=== PATIENT | female | born 1940 | race Caucasian/White ===

== ENCOUNTER 2017-06-15 06:56 | Emergency (ER) | payer MEDICARE, BC ==
[~2017-06-15] VITALS: Ht 170.2 cm; Wt 56.0 kg
[~2017-06-15 06:56] MED LIST: METH4TAB81 PO
[2017-06-15] MEDS ORDERED: normal saline 1000ML IV soln IV ONE (07:10)
[2017-06-15] MEDS ORDERED: ondansetron/PF 4mg/2ml inj IV ONE (07:20)
[2017-06-15 07:22] LABS: CLARITY,URINE CLOUDY (Clear); COLOR,URINE YELLOW (Yellow); GLUCOSE, URINE NEGATIVE (Neg); KETONES,URINE TRACE mg/dl (Neg); LEUKOCYTE ESTERASE ,URINE NEGATIVE (Neg); NITRITES, URINE NEGATIVE (Neg); OCCULT BLOOD,URINE TRACE-INTACT (Neg); PROTEIN,URINE 30 mg/dl (Neg); UROBILINOGEN,URINE 0.2 E.U/dL (0.2-1.0)
[2017-06-15 07:31] LABS: UA COLLECTION TYPE CLN CATCH MIDSTREAM
[2017-06-15 07:35] LABS: BACTERIA,URINE 1+ /HPF (Neg); MUCUS STRANDS MANY /LPF (Neg); RBC,URINE 0-2 /HPF (0-2); SQUAMOUS EPITHELIAL CELL,UR MANY /LPF (FEW); TRANSITIONAL EPI CELLS,URINE FEW /HPF; WBC,URINE 0-4 /HPF (0-4)
[2017-06-15 07:35] LABS: BASOPHILS % (AUTO) 0.1 % (0-1); EOSINOPHILS % (AUTO) 0 % (0-6); HEMATOCRIT 40.8 % (35.0-45.0); HEMOGLOBIN 14.3 g/dl (12.0-16.0); LYMPHOCYTES # (AUTO) 0.2 X10'3 (1.1-4.8); LYMPHOCYTES % (AUTO) 1.6 % (21-51); MEAN CORPUSCULAR HEMOGLOBIN 33.6 PG (27.0-31.0); MEAN CORPUSCULAR VOLUME 95.8 FL (78-98); MEAN PLATELET VOLUME 9.4 FL (7.4-10.4); MONOCYTES # (AUTO) 0.3 X10'3 (0-0.9); MONOCYTES % (AUTO) 2.4 % (2-12); NEUTROPHILS # (AUTO) 13.4 X10'3 (1.8-7.7); NEUTROPHILS % (AUTO) 95.9 % (42-75); PLATELET COUNT 183 X10'3 (140-440); RED BLOOD COUNT 4.26 X10'6 (4.20-5.60); RED CELL DISTRIBUTION WIDTH 13.7 % (11.5-14.5)
[2017-06-15 07:36] LABS: AMORPHOUS URATES 1+
[2017-06-15 07:45] LABS: PARTIAL THROMBOPLASTIN TIME 23 SECONDS (22-32)
[2017-06-15 08:01] LABS: ALANINE AMINOTRANSFERASE 44 U/L (12-78); ALBUMIN 4.4 G/DL (3.4-5.0); ALBUMIN/GLOBULIN RATIO 1.2 (1.1-1.5); ALKALINE PHOSPHATASE 77 IU/L (46-116); ANION GAP 14 (8-16); ASPARTATE AMINO TRANSFERASE 63 U/L (10-37); BILIRUBIN,TOTAL 0.8 MG/DL (0.1-1.0); BLOOD UREA NITROGEN 20 MG/DL (7-18); BUN/CREATININE RATIO 22.2 (6.6-38.0); CALCIUM 9.6 MG/DL (8.5-10.1); CHLORIDE 105 MMOL/L (99-107); GLUCOSE 169 MG/DL (70-104); SODIUM 140 MMOL/L (135-145); TOTAL CARBON DIOXIDE 20.9 MMOL/L (24-32); TOTAL PROTEIN 8.1 G/DL (6.4-8.2); TROPONIN I < 0.04 NG/ML (0.0-0.05); eGFR 61 ML/MIN
[2017-06-15 09:48] LABS: TOTAL CELLS COUNTED 100
[2017-06-15 09:49] LABS: PLATELET ESTIMATE NORMAL
[2017-06-15] MEDS ORDERED: ONDA8TAB9 PO (09:53)
[2017-06-15 13:01] VITALS: BP 104/54
== END 2017-06-15 13:10 | disposition home or self-care (01) ==
LOC: ER 06:56
DX: K52.9 Noninfective gastroenteritis and colitis, unspecified (principal); D72.829 Elevated white blood cell count, unspecified; M19.90 Unspecified osteoarthritis, unspecified site; Z79.899 Other long term (current) drug therapy
CPT/HCPCS: 36415; 71045; 74176; 80053; 81001; 83605; 83735; 84145; 84484; 85025; 85610; 85730; 87040; 93005; 96361; 96374; 99285; J2405; J7030

== ENCOUNTER 2021-02-15 07:26 | Emergency (ER) | payer BC, MEDICARE ==
[~2021-02-15] VITALS: Ht 167.6 cm; Wt 52.3 kg
[~2021-02-15 07:26] MED LIST changes: -METH4TAB81 PO; +NO HOME MEDS
[2021-02-15 09:09] LABS: BASOPHILS % (AUTO) 0.5 % (0-1); EOSINOPHILS # (AUTO) 0.1 X10'3 (0-0.9); EOSINOPHILS % (AUTO) 1.5 % (0-6); HEMATOCRIT 37.6 % (35.0-45.0); HEMOGLOBIN 12.9 g/dl (12.0-16.0); LYMPHOCYTES # (AUTO) 0.9 X10'3 (1.1-4.8); LYMPHOCYTES % (AUTO) 12.5 % (21-51); MEAN CORPUSCULAR HEMOGLOBIN 33.6 PG (27.0-31.0); MEAN CORPUSCULAR HGB CONC 34.3 g/dL (33.0-36.5); MEAN CORPUSCULAR VOLUME 97.7 FL (78-98); MEAN PLATELET VOLUME 9.6 FL (7.4-10.4); MONOCYTES # (AUTO) 0.4 X10'3 (0-0.9); MONOCYTES % (AUTO) 5.9 % (2-12); NEUTROPHILS # (AUTO) 5.9 X10'3 (1.8-7.7); NEUTROPHILS % (AUTO) 79.6 % (42-75); PLATELET COUNT 178 X10'3 (140-440); RED BLOOD COUNT 3.84 X10'6 (4.20-5.60); RED CELL DISTRIBUTION WIDTH 13.2 % (11.5-14.5); WHITE BLOOD COUNT 7.4 X10'3 (4.5-11.0)
[2021-02-15 09:21] LABS: ALANINE AMINOTRANSFERASE 37 U/L (12-78); ALBUMIN 4.1 G/DL (3.4-5.0); ALKALINE PHOSPHATASE 75 IU/L (46-116); ANION GAP 11 (8-16); ASPARTATE AMINO TRANSFERASE 62 U/L (10-37); BILIRUBIN,TOTAL 0.4 MG/DL (0.1-1.0); BLOOD UREA NITROGEN 16 MG/DL (7-18); BUN/CREATININE RATIO 22.5 (6.6-38.0); CALCIUM 9.5 MG/DL (8.5-10.1); CHLORIDE 105 MMOL/L (99-107); CREATININE 0.71 MG/DL (0.40-0.90); GLUCOSE 100 MG/DL (70-104); POTASSIUM 3.9 MMOL/L (3.5-5.1); SODIUM 141 MMOL/L (135-145); TOTAL CARBON DIOXIDE 25.4 MMOL/L (24-32); TOTAL PROTEIN 8.3 G/DL (6.4-8.2); eGFR 79 ML/MIN
[2021-02-15] MEDS ORDERED: benzonatate 100mg capsule PO ONE (10:05)
[2021-02-15] MEDS ORDERED: ipratropium/albuterol 3ml nebule NEB ONE (10:05)
[2021-02-15] MEDS ORDERED: celeCOXIB 100mg capsule PO ONE (10:05)
[2021-02-15 10:20] LABS: TROPONIN I < 0.04 NG/ML (0.0-0.05)
[2021-02-15] MEDS ORDERED: PROM5SYR2 PO (10:58)
[2021-02-15] MEDS ORDERED: INHA1INH2 INH (10:58)
[2021-02-15] MEDS ORDERED: BENZ-16 PO (10:58)
[2021-02-15] MEDS ORDERED: ALBU18HF2 INH (10:58)
--- NOTE | 2021-02-15 11:20 | NUR ---
Pt and family member given and understands d/c instructions. Ambulatory with a steady gait.
[2021-02-15 11:43] VITALS: BP 110/64
== END 2021-02-15 11:20 | disposition home or self-care (01) ==
LOC: ER 07:27
DX: R05.9 Cough, unspecified (principal); J98.01 Acute bronchospasm; R09.89 Other specified symptoms and signs involving the circulatory and respiratory systems; Z72.89 Other problems related to lifestyle
CPT/HCPCS: 36415; 71046; 80053; 83605; 83880; 84484; 85025; 87040; 93005; 94640; 94760; 99285

== ENCOUNTER 2022-10-11 02:43 | Emergency (ER) | payer BC ==
[~2022-10-11] VITALS: Ht 167.6 cm; Wt 54.5 kg
[~2022-10-11 02:43] MED LIST changes: +ALBU18HF2 INH; +INHA1INH2 INH; +PROM5SYR2 PO
[2022-10-11 03:19] LABS: BASOPHILS # (AUTO) 0.1 X10'3 (0-0.2); BASOPHILS % (AUTO) 0.7 % (0-1); EOSINOPHILS # (AUTO) 0.2 X10'3 (0-0.9); HEMATOCRIT 37.1 % (35.0-45.0); HEMOGLOBIN 12.5 g/dl (12.0-16.0); LYMPHOCYTES # (AUTO) 1.7 X10'3 (1.1-4.8); LYMPHOCYTES % (AUTO) 20.5 % (21-51); MEAN CORPUSCULAR HEMOGLOBIN 33.1 PG (27.0-31.0); MEAN CORPUSCULAR HGB CONC 33.7 g/dL (33.0-36.5); MEAN CORPUSCULAR VOLUME 98.5 FL (78-98); MEAN PLATELET VOLUME 9.4 FL (7.4-10.4); MONOCYTES # (AUTO) 0.7 X10'3 (0-0.9); MONOCYTES % (AUTO) 8.4 % (2-12); NEUTROPHILS # (AUTO) 5.6 X10'3 (1.8-7.7); NEUTROPHILS % (AUTO) 68.4 % (42-75); PLATELET COUNT 187 X10'3 (140-440); RED BLOOD COUNT 3.76 X10'6 (4.20-5.60); WHITE BLOOD COUNT 8.1 X10'3 (4.5-11.0)
[2022-10-11 03:31] LABS: ALANINE AMINOTRANSFERASE 23 U/L (12-78); ALBUMIN 4.4 G/DL (3.4-5.0); ALBUMIN/GLOBULIN RATIO 1.2 (1.1-1.5); ALKALINE PHOSPHATASE 77 IU/L (46-116); ANION GAP 12 (8-16); ASPARTATE AMINO TRANSFERASE 55 U/L (10-37); BILIRUBIN,TOTAL 0.4 MG/DL (0.1-1.0); BLOOD UREA NITROGEN 18 MG/DL (7-18); CALCIUM 9.9 MG/DL (8.5-10.1); CHLORIDE 103 MMOL/L (99-107); CREATININE 0.72 MG/DL (0.40-0.90); GLUCOSE 109 MG/DL (70-104); LIPASE 158 U/L (73-393); POTASSIUM 3.7 MMOL/L (3.5-5.1); SODIUM 140 MMOL/L (135-145); TOTAL CARBON DIOXIDE 25.4 MMOL/L (24-32); TOTAL PROTEIN 8.1 G/DL (6.4-8.2); eGFR 78 ML/MIN
--- NOTE | 2022-10-11 04:12 | NUR ---
PT GIVEN COMMODE SHE STATES SHE NEEDS TO HAVE BM. ONLY URINE.
[2022-10-11 04:43] VITALS: BP 160/80
== END 2022-10-11 04:45 | disposition home or self-care (01) ==
LOC: ER 02:43
DX: K62.5 Hemorrhage of anus and rectum (principal); R19.7 Diarrhea, unspecified; K21.9 Gastro-esophageal reflux disease without esophagitis
CPT/HCPCS: 36415; 80053; 83690; 85025; 99283

== ENCOUNTER 2024-02-18 04:46 | Inpatient (IN) | payer BC ==
[~2024-02-18] VITALS: Ht 167.6 cm; Wt 52.3 kg
[2024-02-18] MEDS ORDERED: BUDE3CAP11 PO (05:09)
[2024-02-18 05:30] LABS: BASOPHILS % (AUTO) 0.2 % (0-1); EOSINOPHILS % (AUTO) 0.2 % (0-6); HEMATOCRIT 26.8 % (35.0-45.0); HEMOGLOBIN 8.8 g/dl (12.0-16.0); LYMPHOCYTES # (AUTO) 0.3 X10'3 (1.1-4.8); LYMPHOCYTES % (AUTO) 1.7 % (21-51); MEAN CORPUSCULAR HEMOGLOBIN 31.1 PG (27.0-31.0); MEAN CORPUSCULAR HGB CONC 32.7 g/dL (33.0-36.5); MEAN CORPUSCULAR VOLUME 95.1 FL (78-98); MEAN PLATELET VOLUME 8.3 FL (7.4-10.4); MONOCYTES # (AUTO) 0.7 X10'3 (0-0.9); MONOCYTES % (AUTO) 4.6 % (2-12); NEUTROPHILS # (AUTO) 14.1 X10'3 (1.8-7.7); NEUTROPHILS % (AUTO) 93.3 % (42-75); PLATELET COUNT 289 X10'3 (140-440); RED BLOOD COUNT 2.82 X10'6 (4.20-5.60); RED CELL DISTRIBUTION WIDTH 13.7 % (11.5-14.5); WHITE BLOOD COUNT 15.1 X10'3 (4.5-11.0)
[2024-02-18 05:42] LABS: ALANINE AMINOTRANSFERASE 48 U/L (12-78); ALBUMIN 3.2 G/DL (3.4-5.0); ALBUMIN/GLOBULIN RATIO 0.8 (1.1-1.5); ALKALINE PHOSPHATASE 68 IU/L (46-116); ANION GAP 7 (8-16); ASPARTATE AMINO TRANSFERASE 65 U/L (10-37); BILIRUBIN,TOTAL 0.5 MG/DL (0.1-1.0); BLOOD UREA NITROGEN 15 MG/DL (7-18); BUN/CREATININE RATIO 20.3 (10.0-20.0); CALCIUM 8.8 MG/DL (8.5-10.1); CHLORIDE 102 MMOL/L (99-107); CREATININE 0.74 MG/DL (0.40-0.90); GLUCOSE 123 MG/DL (70-104); POTASSIUM 3.4 MMOL/L (3.5-5.1); SODIUM 135 MMOL/L (135-145); TOTAL CARBON DIOXIDE 26.1 MMOL/L (24-32); TOTAL PROTEIN 7.2 G/DL (6.4-8.2); eCRCL 48 ML/MIN; eGFR 75 ML/MIN
[2024-02-18 05:51] LABS: PRO BRAIN NATRIURETIC PEPTIDE 266 PG/ML (0-450)
[2024-02-18 06:29] LABS: BILIRUBIN,URINE NEGATIVE (Neg); CLARITY,URINE SLIGHTLY CLOUDY (Clear); COLOR,URINE STRAW (Yellow); GLUCOSE, URINE NEGATIVE (Neg); KETONES,URINE NEGATIVE (Neg); LEUKOCYTE ESTERASE ,URINE LARGE (Neg); NITRITES, URINE POSITIVE (Neg); OCCULT BLOOD,URINE TRACE-INTACT (Neg); PROTEIN,URINE TRACE mg/dl (Neg); UROBILINOGEN,URINE 0.2 E.U/dL (0.2-1.0)
[2024-02-18 06:35] LABS: UA COLLECTION TYPE OTHER
[2024-02-18 06:37] LABS: BACTERIA,URINE NONE SEEN /HPF (Neg); RBC,URINE 0-2 /HPF (0-2); SQUAMOUS EPITHELIAL CELL,UR FEW /LPF (FEW)
[2024-02-18 06:38] LABS: MUCUS STRANDS NONE SEEN /LPF (Neg); WBC CLUMPS,URINE FEW /HPF (NEGATIVE)
[2024-02-18] MEDS: normal saline 1000ml 1,000 ML IV ONE (07:17)
[2024-02-18] MEDS: normal saline 500ml IV soln 500 ML IV SCH (07:18)
[2024-02-18] MEDS: piperacillin/tazo 3.375gm/50ml 50 ML IV SCH (07:24)
[2024-02-18] MEDS ORDERED: acetaminophen 325mg tablet PO PRN ×2 (07:35)
[2024-02-18] MEDS ORDERED: morphine 2 MG/ML inj. syringe IV PRN (07:35)
[2024-02-18] MEDS ORDERED: magnesium sulf-water 2g/50mL 50 ML IV PRN (07:35)
[2024-02-18] MEDS ORDERED: potassium Cl 20 mEq SR tablet PO PRN (07:35)
[2024-02-18] MEDS ORDERED: ondansetron/PF 4mg/2ml inj IV PRN (07:35)
[2024-02-18] MEDS ORDERED: magnesium sulf-water 4G/100mL 100 ML IV PRN (07:35)
[2024-02-18] MEDS ORDERED: magnesium Cl slow-release 64mg tablet PO PRN (07:35)
[2024-02-18] MEDS ORDERED: mag hydrox/Alum hydrox/simeth 30ml oral suspension PO PRN (07:35)
[2024-02-18] MEDS ORDERED: potassium Cl 40MEQ/1/2NS 520ml 520 ML IV PRN (07:35)
[2024-02-18] MEDS ORDERED: iohexol 300mg/ml 100ml inj. ONE (07:54)
[2024-02-18] MEDS: heparin, porcine 5000 units/ml vial SQ SCH (08:00)
[2024-02-18] MEDS: normal saline 1000ml 1,000 ML IV SCH (08:26)
[2024-02-18] MEDS: VANCOMYCIN/WATER FOR INJ (PEG) 1.25GM/250 ML IVPB IV ONE (08:26)
[2024-02-18] MEDS: CefTRIAXone 2gm/D5W 50ml BAG 50 ML IV SCH (13:45)
[2024-02-18] MEDS ORDERED: OLAN2.5T77 PO (17:20)
[2024-02-18] MEDS ORDERED: PROC10TA97 PO (17:20)
[2024-02-18] MEDS ORDERED: ONDA-104 PO (17:20)
[2024-02-18 20:00] VITALS: RESP 18; O2SAT 95
[2024-02-18] MEDS: OLANZapine 2.5MG tablet PO SCH (21:00)
[2024-02-18 23:30] VITALS: BP 125/75; PULSE 88; RESP 19; TEMP 97.6; O2SAT 95
[2024-02-19] VITALS (8 sets, daily range): BP systolic 103–145; BP diastolic 40–76; PULSE 66–84; RESP 16–20; TEMP 97.6–98.1; O2SAT 95–98
[2024-02-19] MEDS: potassium Cl 20 mEq SR tablet PO PRN (00:29)
[2024-02-19 06:19] LABS: BASOPHILS % (AUTO) 0.3 % (0-1); EOSINOPHILS # (AUTO) 0.1 X10'3 (0-0.9); EOSINOPHILS % (AUTO) 1.5 % (0-6); HEMATOCRIT 25.3 % (35.0-45.0); HEMOGLOBIN 8.5 g/dl (12.0-16.0); LYMPHOCYTES # (AUTO) 0.5 X10'3 (1.1-4.8); LYMPHOCYTES % (AUTO) 5.3 % (21-51); MEAN CORPUSCULAR HEMOGLOBIN 31.8 PG (27.0-31.0); MEAN CORPUSCULAR HGB CONC 33.5 g/dL (33.0-36.5); MEAN CORPUSCULAR VOLUME 94.8 FL (78-98); MEAN PLATELET VOLUME 7.9 FL (7.4-10.4); MONOCYTES # (AUTO) 0.6 X10'3 (0-0.9); MONOCYTES % (AUTO) 6.7 % (2-12); NEUTROPHILS # (AUTO) 7.9 X10'3 (1.8-7.7); NEUTROPHILS % (AUTO) 86.2 % (42-75); PLATELET COUNT 230 X10'3 (140-440); RED BLOOD COUNT 2.67 X10'6 (4.20-5.60); RED CELL DISTRIBUTION WIDTH 13.9 % (11.5-14.5); WHITE BLOOD COUNT 9.2 X10'3 (4.5-11.0)
[2024-02-19 07:15] LABS: ALANINE AMINOTRANSFERASE 33 U/L (12-78); ALBUMIN 2.5 G/DL (3.4-5.0); ALBUMIN/GLOBULIN RATIO 0.6 (1.1-1.5); ALKALINE PHOSPHATASE 55 IU/L (46-116); ANION GAP 7 (8-16); ASPARTATE AMINO TRANSFERASE 51 U/L (10-37); BILIRUBIN,TOTAL 0.4 MG/DL (0.1-1.0); BLOOD UREA NITROGEN 9 MG/DL (7-18); CALCIUM 8.6 MG/DL (8.5-10.1); CHLORIDE 104 MMOL/L (99-107); CREATININE 0.75 MG/DL (0.40-0.90); GLUCOSE 112 MG/DL (70-104); POTASSIUM 3.5 MMOL/L (3.5-5.1); SODIUM 135 MMOL/L (135-145); TOTAL CARBON DIOXIDE 24.1 MMOL/L (24-32); TOTAL PROTEIN 6.5 G/DL (6.4-8.2); eCRCL 47 ML/MIN; eGFR 74 ML/MIN
[2024-02-19] MEDS: BUDESONIDE 3 MG PO SCH (08:00)
[2024-02-19] MEDS ORDERED: VANCOMYCIN 1GM 200ML H20 (PEG) 200 ML IV SCH (09:00)
[2024-02-19 09:56] LABS: FERRITIN 240 NG/ML (8-252)
[2024-02-19 10:10] LABS: MAGNESIUM 1.9 MG/DL (1.5-2.4)
[2024-02-19 10:17] LABS: % IRON SATURATION 8 % (11-46); IRON 16 UG/DL (49-151); TOTAL IRON BINDING CAPACITY 195 UG/DL (259-388)
[2024-02-19] MEDS: HYDROcodone/acetaminophen 5mg/325mg tablet PO PRN (12:39)
[2024-02-19] MEDS: sod chloride 0.9% 10ml flush syringe IV SCH (13:38)
[2024-02-19] MEDS ORDERED: HYDROcodone/acetaminophen 10/325mg tab PO ONE (17:05)
[2024-02-19] MEDS ORDERED: HYDROcodone/acetaminophen 10/325mg tab PO PRN (17:15)
[2024-02-19] MEDS: morphine 2 MG/ML inj. syringe IV PRN (18:49)
[2024-02-19] MEDS: BUDESONIDE 3 MG PO ONE (20:38)
[2024-02-20 02:00] VITALS: BP 103/47; PULSE 85; RESP 16; TEMP 97.8; O2SAT 97
[2024-02-20 05:32] LABS: BASOPHILS % (AUTO) 0.3 % (0-1); EOSINOPHILS # (AUTO) 0.2 X10'3 (0-0.9); EOSINOPHILS % (AUTO) 2.3 % (0-6); HEMATOCRIT 25.1 % (35.0-45.0); HEMOGLOBIN 8.2 g/dl (12.0-16.0); LYMPHOCYTES # (AUTO) 0.5 X10'3 (1.1-4.8); LYMPHOCYTES % (AUTO) 5.7 % (21-51); MEAN CORPUSCULAR HEMOGLOBIN 31.4 PG (27.0-31.0); MEAN CORPUSCULAR HGB CONC 32.8 g/dL (33.0-36.5); MEAN CORPUSCULAR VOLUME 95.7 FL (78-98); MEAN PLATELET VOLUME 8.2 FL (7.4-10.4); MONOCYTES # (AUTO) 0.4 X10'3 (0-0.9); MONOCYTES % (AUTO) 5.4 % (2-12); NEUTROPHILS # (AUTO) 6.9 X10'3 (1.8-7.7); NEUTROPHILS % (AUTO) 86.3 % (42-75); PLATELET COUNT 203 X10'3 (140-440); RED BLOOD COUNT 2.63 X10'6 (4.20-5.60)
[2024-02-20 05:55] LABS: ALANINE AMINOTRANSFERASE 34 U/L (12-78); ALBUMIN 2.5 G/DL (3.4-5.0); ALBUMIN/GLOBULIN RATIO 0.6 (1.1-1.5); ALKALINE PHOSPHATASE 51 IU/L (46-116); ANION GAP 9 (8-16); ASPARTATE AMINO TRANSFERASE 51 U/L (10-37); BILIRUBIN,TOTAL 0.3 MG/DL (0.1-1.0); BLOOD UREA NITROGEN 10 MG/DL (7-18); BUN/CREATININE RATIO 13.2 (10.0-20.0); CALCIUM 8.3 MG/DL (8.5-10.1); CHLORIDE 107 MMOL/L (99-107); CREATININE 0.76 MG/DL (0.40-0.90); GLUCOSE 109 MG/DL (70-104); MAGNESIUM 1.7 MG/DL (1.5-2.4); POTASSIUM 3.2 MMOL/L (3.5-5.1); SODIUM 137 MMOL/L (135-145); TOTAL CARBON DIOXIDE 21.4 MMOL/L (24-32); TOTAL PROTEIN 6.4 G/DL (6.4-8.2); eCRCL 46 ML/MIN; eGFR 73 ML/MIN
[2024-02-20 06:00] VITALS: BP 104/48; PULSE 69; RESP 14; TEMP 97.9; O2SAT 99
[2024-02-20 10:00] VITALS: BP 137/49; PULSE 85; RESP 16; TEMP 97.3; O2SAT 99
[2024-02-20 10:30] VITALS: RESP 16; O2SAT 98
[2024-02-20] MEDS ORDERED: CIPR-259 PO (11:40)
[2024-02-20 14:00] VITALS: BP 130/50; PULSE 80; RESP 16; TEMP 97.6; O2SAT 99
[2024-02-21] MEDS ORDERED: VANCOMYCIN LEVEL IV ONE (08:30)
== END 2024-02-20 16:49 | disposition home health service (06) | DRG 698 ==
LOC: ER 04:46 → ED HOLD 07:40 → PCU 3S 22:30
PROVIDERS: ADMIT Internal Medicine; ATTEND Internal Medicine
PROC: BW211ZZ Computerized Tomography (CT Scan) of Abdomen and Pelvis using Low Osmolar Contrast (ICD-10-PCS; principal; 2024-02-18)
DX: T83.512A Infection and inflammatory reaction due to nephrostomy catheter, initial encounter (principal); A41.9 Sepsis, unspecified organism; N13.6 Pyonephrosis; E44.0 Moderate protein-calorie malnutrition; Z68.1 Body mass index [BMI] 19.9 or less, adult; Z66 Do not resuscitate; K80.20 Calculus of gallbladder without cholecystitis without obstruction; K52.838 Other microscopic colitis; K21.9 Gastro-esophageal reflux disease without esophagitis; C67.9 Malignant neoplasm of bladder, unspecified; Z92.21 Personal history of antineoplastic chemotherapy; Z92.3 Personal history of irradiation; D63.8 Anemia in other chronic diseases classified elsewhere
CPT/HCPCS: 36415; 71045; 74177; 80053; 81001; 82728; 83540; 83550; 83605; 83735; 83880; 84145; 84484; 85025; 87040; 87077; 87081; 87088; 87186; 93005; 96360; 97161; 97530; 99291; G0378; J0696; J1644; J2270; J2543; J3372; J7030; J7040; Q9967